=== PATIENT | male | born 1960 | race Caucasian/White ===

== ENCOUNTER → 2021-08-21 07:46 | Outpatient (BNVA) | payer MEDICARE, SELFPAY | PROVIDERS: Visit Provider Nurse Practitioner Family | DX: G25.81 Restless legs syndrome (principal); G62.9 Polyneuropathy, unspecified; R29.898 Other symptoms and signs involving the musculoskeletal system | CPT/HCPCS: 99212 ==

== ENCOUNTER → 2021-11-18 10:48 | Outpatient (BNVA) | payer MEDICARE, SELFPAY | PROVIDERS: PCP Internal Medicine; Visit Provider Nurse Practitioner Family | DX: G25.81 Restless legs syndrome (principal); G62.9 Polyneuropathy, unspecified | CPT/HCPCS: 99212 ==

== ENCOUNTER 2023-12-02 13:55 | Outpatient (AMB) | payer MEDICARE, MEDICAID, SELFPAY ==
--- NOTE | 2023-12-02 13:57 | A.OFFVIS_ITS ---
Vital Signs 12/02/23 14:06 Height 6 ft Weight 187 lb BMI 25.4 BP 122/76 Blood Pressure Location Rt brachial Position Sitting Pulse 59 Pulse Source Pulse Oximeter Pulse Oximetry (%) 98 Oxygen Delivery Method Room Air Intake Visit Reasons: Follow up-CONF Intake Note: Patient presents for follow up. Patient haven't seen provider in a while deals with the neuropathy every day Allergies No Known Allergies Allergy (Verified 12/02/23 14:07) Medication List - Last Reconciled 12/02/23 by HERNAN Gomez acetaminophen (Tylenol Extra Strength) 500 mg PO Q6H PRN amlodipine 2.5 mg PO DAILY aspirin 81 mg PO DAILY atorvastatin 40 mg PO DAILY baclofen 10 mg PO DAILY bumetanide 1 mg PO DAILY cholecalciferol (vitamin D3) 25 mcg PO DAILY clonidine 1 patch transdermal QWEEK clopidogrel 75 mg PO DAILY cyanocobalamin (vitamin B-12) 1,000 mcg PO DAILY gabapentin enacarbil ER (Horizant ER) 300 mg PO BID 30 days losartan 25 mg PO DAILY oxybutynin chloride ER 5 mg PO DAILY ropinirole 0.5 mg (2 x 0.25 mg) PO .4 times a day 90 days tramadol 50 mg PO Q6H PRN 7 days HPI Comments Details: 63-yr-old male presents for f/u visit. Pt was last seen approx 2 yrs ago. Pt denies any significant interval medical changes. Pt is still followed closely by Dr Benavides for CKD- last GRF 26%. He has had an intentional weight loss. He continues to have BLE squeezing sensation and numbness, but also hypersensitive to touch. May feel like he is walking through puddles. Notes that if he eats certain foods, such as a certain type of pasta- certain brands and certain sauces, will trigger a flare-up. He describes the flare-ups- poking/needling sensation and prolonged BLE burning sensation a/w restlessness, which can last 5 hours. Tries to massage his legs. Walking can help- especially on colder floors. He avoids most dark colored fruits per nephrology; nuts/seeds/seeded fruits d/t diverticulitis. He states his blood sugars have been a little high. The Horizant 300mg bid and Ropinirole 0.5mg qid- does help, when he recently missed a day d/t delivery issue, he had increased foot pain. Generally tolerates these well. May doze off if inactive. No OCD or OH s/s. Previous trials- Gabapentin caused drop attacks. [facility] Medical History (Updated 12/02/23 @ 14:36 by HERNAN Gomez) Kidney failure Surgical History History of hernia surgery History of surgery on arm Family History Father Diabetes Mother Cancer Sister No problems noted. Social History Alcohol intake: never Patient Tobacco Use Status: Never used Tobacco Physical Exam Vital Signs: Last Vital Signs Pulse 59 12/02/23 14:06 BP 122/76 12/02/23 14:06 Pulse Ox 98 12/02/23 14:06 Oxygen Delivery Method Room Air 12/02/23 14:06 BMI result Body Mass Index 25.4 Const General: cooperative and no acute distress Orientation/consciousness: patient oriented x3 Resp Effort & Inspection: normal respiratory effort and able to speak in complete sentences Neuro General: patient oriented x3 Cranial nerves: Yes CN's II-XII intact bilaterally Cognition (Neuro): normal cognition Psych Appearance: grossly normal Mental Status: mental status grossly normal Speech and movement: Normal speech and movement present Affect: normal affect Attitude: cooperative Assessment & Plan Assessment & Plan (1) Polyneuropathy: Comment: BLE- diffuse axonal > demylinative, sensory motor peripheral neuropathy- ? restless legs; ? related to CKD; ? idiopathic/familial. Code(s): G62.9 - Polyneuropathy, unspecified Category: Medical Plan Continue Horizant 300mg bid. Will initiate a prior auth- to see if this is now covered by pt's insurance. Continue Reqip 0.25mg 2 tabs QID. Check labs- to assess underlying etiologies of food intake which triggers foot pain. Previous trials- Gabapentin caused drop attacks. Follow-up in 6 months or sooner prn. Orders: Orders Complete Blood Count Auto Diff 12/02/23 G62.9 - Polyneuropathy, unspecified, N19 - Unspecified kidney failure, R73.9 - Hyperglycemia, unspecified Comprehensive Met. Panel 12/02/23 G62.9 - Polyneuropathy, unspecified, N19 - Unspecified kidney failure, R73.9 - Hyperglycemia, unspecified Vitamin B12 and Folate 12/02/23 G62.9 - Polyneuropathy, unspecified, N19 - Unspecified kidney failure, R73.9 - Hyperglycemia, unspecified Folate 12/02/23 G62.9 - Polyneuropathy, unspecified, N19 - Unspecified kidney failure, R73.9 - Hyperglycemia, unspecified Hemoglobin A1c 12/02/23 G62.9 - Polyneuropathy, unspecified, N19 - Unspecified kidney failure, R73.9 - Hyperglycemia, unspecified TSH reflex Free T4 12/02/23 G62.9 - Polyneuropathy, unspecified, N19 - Unspecified kidney failure, R73.9 - Hyperglycemia, unspecified Medications: Refilled gabapentin enacarbil ER (Horizant ER) 300 mg PO BID 60 tabs 6RF 30 days Coding Level of Care Code Est Pt Level 4 (48116) Diagnoses Polyneuropathy G62.9
[2023-12-02 14:06] VITALS: BP 122/76; PULSE 59; O2SAT 98; BMI 25.4
== END 2023-12-02 15:02 | disposition home or self-care (01) ==
PROVIDERS: PCP Internal Medicine; Visit Provider Nurse Practitioner Family
DX: G62.9 Polyneuropathy, unspecified (principal)
CPT/HCPCS: 99214

== ENCOUNTER → 2023-12-02 13:55 | Outpatient (BNVA) | payer MEDICARE, MEDICAID, SELFPAY | PROVIDERS: PCP Internal Medicine; Visit Provider Nurse Practitioner Family | DX: G62.9 Polyneuropathy, unspecified (principal); Z79.899 Other long term (current) drug therapy | CPT/HCPCS: 99212 ==

== ENCOUNTER 2024-06-19 13:43 | Outpatient (AMB) | payer MEDICARE, MEDICAID, SELFPAY ==
--- NOTE | 2024-06-19 14:00 | MHC.OFFVIS ---
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 Accompanied by: Self / Same As Patient Allergies No Known Allergies Allergy (Verified 06/19/24 14:02) Medication List - Last Reconciled 06/19/24 by HERNAN Gomez acetaminophen (Tylenol Extra Strength) 500 mg PO Q6H PRN amlodipine 2.5 mg PO DAILY aspirin 81 mg PO DAILY atorvastatin 40 mg PO DAILY baclofen 10 mg PO DAILY bumetanide 1 mg PO DAILY cholecalciferol (vitamin D3) 25 mcg PO DAILY clonidine 1 patch transdermal QWEEK clopidogrel 75 mg PO DAILY cyanocobalamin (vitamin B-12) 1,000 mcg PO DAILY gabapentin enacarbil ER (Horizant ER) 300 mg PO BID 30 days losartan 25 mg PO DAILY oxybutynin chloride ER 5 mg PO DAILY pregabalin 25 mg PO TID 30 days ropinirole 0.5 mg (2 x 0.25 mg) PO .4 times a day 90 days tramadol 50 mg PO Q6H PRN 7 days HPI Comments Details: 64-yr-old male presents for f/u visit of BLE polyneuropathy and RLS. Pt denies any significant interval medical changes. December 2023- HgA1C 6.5%- denies known h/o diabetes, however has a strong family h/o DM.. Pt is still followed closely by Dr Benavides for CKD- last GRF 28%. He also reports he had vascular f/u for BLE KATHERIN and AAA US- 3.2cm, gisel iliac stent monitoring- evaluations were stable/reassuring. He does not smoke- quit 6 yrs ago. Since the last visit, pt was switched from Horizant to Pregabalin 25mg tid. He feels the Pregabalin is more effective for neuralgic pain control than the Horizant. He did notice some increased BLE/foot swelling after starting pregabalin, which has subsided. He is still avoiding certain foods that do seem to trigger his neuropathic pain- such as pasta jar. He does still have some intermittent foot numbness- occassionally may feel like he is stepping in waterbut has not or like he has stepped on something but has not. Can easily doze off if relaxing and laying down. Denies drop attacks or orthostatic lightheadedness. Compliant Ropinirole 0.5mg qid- does help restlessness. Generally tolerates these well. May doze off if inactive. No OCD or OH s/s. Previous trials- Gabapentin caused drop attacks. [facility] Medical History (Updated 06/19/24 @ 21:12 by HERNAN Gomez) Kidney failure Surgical History History of hernia surgery History of surgery on arm Family History Father Diabetes Mother Cancer Sister No problems noted. Social History Alcohol intake: never Patient Tobacco Use Status: Never used Tobacco Physical Exam Vital Signs: Last Vital Signs BP 130/80 06/19/24 14:02 BMI result Body Mass Index 25.6 Const General: cooperative and no acute distress Orientation/consciousness: patient oriented x3 Resp Effort & Inspection: normal respiratory effort and able to speak in complete sentences Neuro General: patient oriented x3 Cranial nerves: Yes CN's II-XII intact bilaterally Cognition (Neuro): normal cognition Psych Appearance: grossly normal Mental Status: mental status grossly normal Speech and movement: Normal speech and movement present Affect: normal affect Attitude: cooperative Assessment & Plan Assessment & Plan (1) Polyneuropathy: Comment: BLE- diffuse axonal > demyelinative, sensory motor peripheral neuropathy- likely secondary to CKD, less likely idiopathic/familial. Code(s): G62.9 - Polyneuropathy, unspecified Category: Medical (2) Restless leg syndrome: Code(s): G25.81 - Restless legs syndrome Category: Medical (3) Elevated hemoglobin A1c: Code(s): R73.09 - Other abnormal glucose Category: Medical Plan Horizant stopped d/t insurance coverage issue. Continue Pregabalin 25mg po tid- as it is more effective and well-tolerated. Monitor for peripheral swelling. Continue Ropinirole 0.25mg tab- 2 tabs QID. Reviewed previous HgA1C 6.5%, will recheck fasting CBC, CMP, HgA1C- lab slips given to pt. Previous trials- Gabapentin caused drop attacks. Horizant- not fully effective. Follow-up in 6 months or sooner prn. Orders: Orders Complete Blood Count Auto Diff Today N19 - Unspecified kidney failure, R73.09 - Other abnormal glucose Comprehensive Met. Panel Today N19 - Unspecified kidney failure, R73.09 - Other abnormal glucose Hemoglobin A1c Today N19 - Unspecified kidney failure, R73.09 - Other abnormal glucose Coding Level of Care Code Est Pt Level 4 (04807) Diagnoses Polyneuropathy G62.9 Restless leg syndrome G25.81 Elevated hemoglobin A1c R73.09
[2024-06-19 14:02] VITALS: BP 130/80; BMI 25.6
== END 2024-06-19 14:52 | disposition home or self-care (01) ==
PROVIDERS: PCP Internal Medicine; Visit Provider Nurse Practitioner Family
DX: G62.9 Polyneuropathy, unspecified (principal); G25.81 Restless legs syndrome; R73.09 Other abnormal glucose
CPT/HCPCS: 99214

== ENCOUNTER → 2024-06-19 13:43 | Outpatient (BNVA) | payer MEDICARE, MEDICAID, SELFPAY | PROVIDERS: PCP Internal Medicine; Visit Provider Nurse Practitioner Family | DX: G62.9 Polyneuropathy, unspecified (principal); G25.81 Restless legs syndrome; R73.09 Other abnormal glucose | CPT/HCPCS: 99212 ==

== ENCOUNTER 2024-12-21 10:13 | Outpatient (AMB) | payer MEDICARE, MEDICAID, SELFPAY ==
[2024-12-21 10:33] VITALS: BP 144/68; PULSE 62; O2SAT 97; BMI 24.0
--- NOTE | 2024-12-21 10:33 | A.OFFVIS_ITS ---
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 Accompanied by: Self / Same As Patient Allergies No Known Allergies Allergy (Verified 12/21/24 10:37) Medication List - Last Reconciled 12/21/24 by HERNAN Gomez acetaminophen (Tylenol Extra Strength) 500 mg PO Q6H PRN amlodipine 2.5 mg PO DAILY aspirin 81 mg PO DAILY atorvastatin 40 mg PO DAILY baclofen 10 mg PO DAILY bumetanide 1 mg PO DAILY cholecalciferol (vitamin D3) 25 mcg PO DAILY clonidine 1 patch transdermal QWEEK clopidogrel 75 mg PO DAILY cyanocobalamin (vitamin B-12) 1,000 mcg PO DAILY gabapentin enacarbil ER (Horizant ER) 300 mg PO BID 30 days losartan 25 mg PO DAILY oxybutynin chloride ER 5 mg PO DAILY pregabalin 25 mg PO TID 30 days ropinirole 0.5 mg (2 x 0.25 mg) PO QID 90 days tramadol 50 mg PO Q6H PRN 7 days HPI Comments Details: 64-yr-old male presents for f/u visit of BLE polyneuropathy and RLS. Pt denies any significant interval medical changes. He is planning to move to [place] either in February, and if he is not able to move by February then we will move next summer. He is curious if we know of a neurologist in [place]- unfortunately I do not. Interval 06/29/24 labs, were notable for elevated WBC 11.3, RBC 6.04, H&H 19.1/56.4, BUN 52, creatinine 2.54, eGFR 27 low, hemoglobin A1c 6.8%. He did have a UTI at the time, and was being treated with an antibiotic. At that time, we did share his lab work with his PCP and epoxy fabrication supervisor. Patient states he did speak to his epoxy fabrication supervisor, and was advised to see hematology- though he has not, as he has not had follow-up with his PCP office. He has continued to follow-up with Dr. Brannon, vascular. He states he is still smoking, but is trying not to. Pt reports his BLE now feel more like a squeezing sensation, and not so much a burning or restlessness. He does still have some intermittent foot numbness- occasionally may feel like he is stepping in water, but has not or like he has stepped on something but has not. He is still avoiding certain foods that do seem to trigger his neuropathic pain- such as pasta jar. Can easily doze off if relaxing and laying down. Denies drop attacks or orthostatic lightheadedness. Compliant w/ Pregabalin 25mg tid and Ropinirole 0.5mg qid- does seem to help. Generally tolerates these well. May doze off if inactive. No OCD or OH s/s. Previous trials- Gabapentin caused drop attacks. [facility] Medical History (Updated 12/21/24 @ 11:29 by HERNAN Gomez) Kidney failure Surgical History History of hernia surgery History of surgery on arm Family History Father Diabetes Mother Cancer Sister No problems noted. Social History Alcohol intake: never Patient Tobacco Use Status: Never used Tobacco Physical Exam Vital Signs: Last Vital Signs Pulse 62 12/21/24 10:33 BP 144/68 H 12/21/24 10:33 Pulse Ox 97 12/21/24 10:33 Oxygen Delivery Method Room Air 12/21/24 10:33 BMI result Body Mass Index 24.0 Const General: cooperative and no acute distress Orientation/consciousness: patient oriented x3 Resp Effort & Inspection: normal respiratory effort and able to speak in complete sentences Neuro General: patient oriented x3 Cranial nerves: Yes CN's II-XII intact bilaterally Cognition (Neuro): normal cognition Psych Appearance: grossly normal Mental Status: mental status grossly normal Speech and movement: Normal speech and movement present Affect: normal affect Attitude: cooperative Results Reviewed Results Reviewed: Assessment & Plan Assessment & Plan (1) Kidney failure: Code(s): N19 - Unspecified kidney failure Category: Medical (2) Elevated hemoglobin: Code(s): D58.2 - Other hemoglobinopathies Category: Medical (3) Polyneuropathy: Comment: BLE- diffuse axonal > demyelinative, sensory motor peripheral neuropathy- likely secondary to CKD, less likely idiopathic/familial. Code(s): G62.9 - Polyneuropathy, unspecified Category: Medical (4) Restless leg syndrome: Code(s): G25.81 - Restless legs syndrome Category: Medical (5) Elevated hemoglobin A1c: Code(s): R73.09 - Other abnormal glucose Category: Medical Plan Reviewed interval labs, notable for elevated hemoglobin and hematocrit, chronic kidney disease, an elevated hemoglobin A1c. We will recheck labs including iron studies. Patient advised that if hemoglobin A1c remains elevated he should follow-up with PCP office to initiate treatment to improve glycemic control. We will request hematology consult for elevated hemoglobin and hematocrit. Continue Pregabalin 25mg po tid- as it is more effective and well-tolerated. Monitor for peripheral swelling. Continue Ropinirole 0.25mg tab- 2 tabs QID. Previous trials- Gabapentin caused drop attacks. Horizant- not fully effective. Reassured patient, if he does mood [place], we will work with his new medical team to ensure continuity of care. Follow-up in 6 months or sooner prn. Orders: Orders 2 Ferritin Today D58.2 - Other hemoglobinopathies, N19 - Unspecified kidney failure, R73.09 - Other abnormal glucose IRON PROFILE Today D58.2 - Other hemoglobinopathies, D64.9 - Anemia, unspecified, N19 - Unspecified kidney failure, R73.09 - Other abnormal glucose Hemoglobin A1c Today D58.2 - Other hemoglobinopathies, N19 - Unspecified kidney failure, R73.09 - Other abnormal glucose Comprehensive Met. Panel Today D58.2 - Other hemoglobinopathies, N19 - Unspecified kidney failure, R73.09 - Other abnormal glucose Complete Blood Count Auto Diff Today D58.2 - Other hemoglobinopathies, N19 - Unspecified kidney failure, R73.09 - Other abnormal glucose Referrals 2 Hematology & Oncology Referral D58.2 - Other hemoglobinopathies, N19 - Unspecified kidney failure Medications: Refilled 2 pregabalin 25 mg PO TID 30 days 90 caps 3RF ropinirole 2 TABS AT 11 AM, 2 TABS AT 4 PM, 2 TABS AT 7 PM, AND 2 TABS AT 11 PM 0.5 mg (2 x 0.25 mg) PO QID 90 days 720 tabs 1RF Discontinued 2 gabapentin enacarbil ER (Horizant ER) Discontinued Reason: Doctor's Order 300 mg PO BID 30 days 60 tabs 6RF Coding Level of Care Code Est Pt Level 4 (66917) Diagnoses Kidney failure N19 Elevated hemoglobin D58.2 Polyneuropathy G62.9 Restless leg syndrome G25.81 Elevated hemoglobin A1c R73.09
--- OUTSIDE RECORDS SUMMARY | 2024-12-21 10:52 | XMS_ITS | Encounter Summary ---
Author Organization [facility] Address [address] [facility] [address] [place] [address] Phone Care Team Providers Care Yacht Master Name Role Phone Bola Mendoza MD Primary Care Provider [phone] Encounter Details Date Type Department Care Team (Late st Contact Info) Description 12/22/2020 Orders Only [facility] [address] [place] [address] Zeus Benavides MD [address] [address] Stage 3a chronic kidney disease (HCC) Social History Tobacco Use Types Packs/Day Years Used Date Smoking Tobacco: Former Cigarettes Q uit: 07/25/2015 Smokeless Tobacco: Never Comments:Smoking History Inf o:Every day Alcohol Use Standard Drinks/Week Comments Not Currently 0 (1 standard drink = 0.6 oz pur e alcohol) Sex and Gender Information Value Date Recorded Sex Assigned at Not on file Legal Sex Male 5:06 PM EST Gender Identity Not on file Sexual Orientation Not on file documented as of this encounter Plan of Treatment Upcoming Encounters Date Type Department Care Team (Late st Contact Info) Description 01/03/2025 2:45 PM EDT Office Visit [facility] [address] [place] [id number] Zeus Benavides MD [address] [facility] [address] [place] [address] documented as of this encounter Procedures Procedure Name Priority Date/Time Associated Diagnosis Comments PROTEIN / CREATININE RATIO, URINE Routine 04/13/2021 1:32 PM EDT Stage 3a chronic kidney disease (HCC) VITAMIN D 25 HYDROXY Routine 04/13/2021 1:32 PM EDT Stage 3a chronic kidney disease (HCC) PTH, INTACT Routine 04/13/2021 1:32 PM EDT Stage 3a chronic kidney disease (HCC) RENAL FUNCTION PANEL Routine 04/13/2021 1:32 PM EDT Stage 3a chronic kidney disease (HCC) documented in this encounter Results * (ABNORMAL) Renal Function Panel (04/13/2021 1:32 PM EDT) Glucose 126(H) (70-99) MG/DL [facility] BUN 43(H) (8-23) MG/DL [facility] Creatinine 2.5(H) (0.7-1.2) MG/DL [facility] Sodium 141 (133-145) MMOL/L [facility] Potassium 5.3(H) (3.6-5.2) MMOL/L [facility] Chloride 103 (98-107) MMOL/L [facility] Bicarbonate (CO2) 27 (22-29) MMOL/L [facility] Anion Gap 11 (4-17) [facility] Albumin 4.3 (3.4-4.8) GM/DL [facility] Calcium 9.5 (8.6-10.5) MG/DL [facility] Phosphorus, Serum 3.2 (2.5-4.5) MG/DL [facility] Est GFR Non 27 ML/MIN/1.7 3 M2 [facility] Comment: Creatinine based estimated glomerular filtration rate (eGFR) is calculated using the Chronic Kidney Disease Epidemiology Collaboration (CKD-EPI). The CKD-EPI creatinine equation has not been validated in children (<18 years), women or in some racial or ethnic subgroups other than Caucasians and Americans. EST GFR 32 ML/MIN/1.7 3 M2 [facility] Comment: Creatinine based estimated glomerular filtration rate (eGFR) is calculated using the Chronic Kidney Disease Epidemiology Collaboration (CKD-EPI). The CKD-EPI creatinine equation has not been validated in children (<18 years), women or in some racial or ethnic subgroups other than Caucasians and Americans. Testing performed or reported by [facility], a Service of [address] [address] Anitra Ball MD, Organizational Effectiveness Consultant WILFRIDIA# [id number] Blood specimen (specimen) Venous blood / Unknown 04/13/2021 1:32 PM EDT 04/13/2021 1:36 PM EDT Zeus Benavides MD LAB BLOOD ORDERABLES Final Resu lt Performing Organization Address [facility] Co de Phone Number [facility] * (ABNORMAL) PTH, intact (04/13/2021 1:32 PM EDT) PTH, Intact 80(H) (15-65) PG/ML [facility] Comment: Testing performed or reported by [facility], a Service of [address] [address] Anitra Ball MD, Organizational Effectiveness Consultant CLIA# [id number] Blood specimen (specimen) Venous blood / Unknown 04/13/2021 1:32 PM EDT 04/13/2021 1:36 PM EDT us Zeus Benavides MD LAB BLOOD ORDERABLES Final Resu lt Performing Organization Address [facility] Co de Phone Number [facility] * (ABNORMAL) Vitamin D 25 hydroxy (04/13/2021 1:32 PM EDT) Vitamin D, 25-Hydroxy 51.4(H) (20-50) NG/ML [facility] Comment: Testing performed or reported by [facility], a Service of [address] [address] Anitra Ball MD, Organizational Effectiveness Consultant CLIA# [id number] Blood specimen (specimen) Venous blood / Unknown 04/13/2021 1:32 PM EDT 04/13/2021 1:36 PM EDT Zeus Benavides MD LAB BLOOD ORDERABLES Final Resu lt Performing Organization Address [facility] Co de Phone Number [facility] * (ABNORMAL) Urine Protein / creatinine ratio (04/13/2021 1:32 PM EDT) Protein/Creati ne Ratio 0.58(H) (0-0.2) [facility] Protein, Urine 69 MG/DL [facility] Creatinine, Urine 118.5 MG/DL [facility] Comment: Testing performed or reported by [facility], a Service of [facility], [address] [place] [address] Anitra Ball MD, Organizational Effectiveness Consultant [facility]# [id number] Urine specimen (specimen) Urine specimen obtained by clean catch procedure / Unknown 04/13/2021 1:32 PM EDT 04/13/2021 1:36 PM EDT Zeus Benavides MD LAB URINE ORDERABLES Final Resu lt Performing Organization Address [facility] Co de Phone Number [facility] documented in this encounter Visit Diagnoses Diagnosis Stage 3a chronic kidney disease (HCC) documented in this encounter Care Teams Yacht Master Relationship Specialty Start Date End Date Bola Mendoza MD [facility] [address] [place] [address] [address] [place] [address] PCP - General Internal Medicine 09/12/20 documented as of this encounter
== END 2024-12-21 12:01 | disposition home or self-care (01) ==
LOC: HO.HSMS 10:14
PROVIDERS: PCP Internal Medicine; Visit Provider Nurse Practitioner Family
DX: N19 Unspecified kidney failure (principal); D58.2 Other hemoglobinopathies; G62.9 Polyneuropathy, unspecified; G25.81 Restless legs syndrome; R73.09 Other abnormal glucose
CPT/HCPCS: 99214

== ENCOUNTER → 2024-12-21 10:13 | Outpatient (BNVA) | payer MEDICARE, MEDICAID, SELFPAY | PROVIDERS: PCP Internal Medicine; Visit Provider Nurse Practitioner Family | DX: G62.9 Polyneuropathy, unspecified (principal); N19 Unspecified kidney failure; R73.09 Other abnormal glucose; D58.2 Other hemoglobinopathies; G25.81 Restless legs syndrome | CPT/HCPCS: 99212 ==

== ENCOUNTER 2025-06-17 13:51 | Outpatient (AMB) | payer MEDICARE, SELFPAY ==
--- NOTE | 2025-06-17 14:06 | MHC.OFFVIS ---
Vital Signs 06/17/25 14:09 Height 6 ft Weight 188 lb BMI 25.5 BP 142/80 H Blood Pressure Location Rt brachial Position Sitting Pulse 58 Pulse Source Pulse Oximeter Pulse Oximetry (%) 98 Oxygen Delivery Method Room Air Intake Visit Reasons: 6m follow up Intake Note: Patient presents 6 month follow up for Polyneuropathy/RLS [employer]iter Required: No Accompanied by: Self / Same As Patient Allergies No Known Allergies Allergy (Verified 06/17/25 14:12) Medication List - Last Reconciled 06/17/25 by HERNAN Gomez acetaminophen (Tylenol Extra Strength) 500 mg PO Q6H PRN amlodipine 2.5 mg PO DAILY apixaban (Eliquis) 5 mg PO BID aspirin 81 mg PO DAILY atorvastatin 40 mg PO DAILY baclofen 10 mg PO DAILY bumetanide 1 mg PO DAILY cholecalciferol (vitamin D3) 25 mcg PO DAILY clonidine 1 patch transdermal QWEEK cyanocobalamin (vitamin B-12) 1,000 mcg PO DAILY losartan 25 mg PO DAILY oxybutynin chloride ER 5 mg PO DAILY pregabalin 25 mg PO TID 30 days ropinirole 0.5 mg (2 x 0.25 mg) PO QID 90 days tramadol 50 mg PO Q6H PRN 7 days HPI Comments Details: 65-yr-old male presents for f/u visit of BLE polyneuropathy and RLS. 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 He was admitted to [facility] and underwent embolectomy/thrombectomy by Dr Brannon. Clopidegrol was switched to life-long Eliquis tx. Follow-up vascualr work-up has been reassuirng. He states he has recovered well from the embolectomy and thrombectomy. He will f/u w/ Dr Brannon next year. He is still followed closely by Dr Benavides. Unfortunately, due to the above, he had to reschedule the previously requested hematology consult, and has not had the follow-up hemoglobin A1c and iron studies lab work done. He is working to reestablish care with his PCP office. He has put his plans on hold to move to [place] due to these new health issues and his dtr is planning to start a family. Pt reports his BLE now feel more like a squeezing sensation, and not so much a burning or restlessness. He does still have some intermittent foot numbness when walking (but hypersensitivity with light touch)- occasionally may feel like he is stepping in water, but has not or like he has stepped on something but has not. He is still avoiding certain foods that do seem to trigger his neuropathic pain- such as pasta jar. Can easily doze off if relaxing and laying down. Denies drop attacks or orthostatic lightheadedness. Compliant w/ Pregabalin 25mg tid and Ropinirole 0.5mg qid- does seem to help. Generally tolerates these well. May doze off if inactive. No OCD or OH s/s. Previous trials- Gabapentin caused drop attacks. [facility] Medical History (Updated 06/17/25 @ 15:26 by HERNAN Gomez) Deep vein blood clot of right lower extremity Kidney failure Surgical History History of hernia surgery History of surgery on arm Family History Father Diabetes Mother Cancer Sister No problems noted. Social History Alcohol intake: never Patient Tobacco Use Status: Never used Tobacco Physical Exam Vital Signs: Last Vital Signs Pulse 58 06/17/25 14:09 BP 142/80 H 06/17/25 14:09 Pulse Ox 98 06/17/25 14:09 Oxygen Delivery Method Room Air 06/17/25 14:09 BMI result Body Mass Index 25.5 Const General: cooperative and no acute distress Orientation/consciousness: patient oriented x3 Resp Effort & Inspection: normal respiratory effort and able to speak in complete sentences Neuro General: patient oriented x3 Cranial nerves: Yes CN's II-XII intact bilaterally Cognition (Neuro): normal cognition Psych Appearance: grossly normal Mental Status: mental status grossly normal Speech and movement: Normal speech and movement present Affect: normal affect Attitude: cooperative Results Reviewed Results Reviewed: Assessment & Plan Assessment & Plan (1) Polyneuropathy: Comment: BLE- diffuse axonal > demyelinative, sensory motor peripheral neuropathy- likely secondary to CKD, less likely idiopathic/familial. Code(s): G62.9 - Polyneuropathy, unspecified Category: Medical (2) Restless leg syndrome: Code(s): G25.81 - Restless legs syndrome Category: Medical (3) Elevated hemoglobin A1c: Code(s): R73.09 - Other abnormal glucose Category: Medical Plan Reviewed interval hospital notes and labs. notable for elevated hemoglobin and hematocrit, chronic kidney disease, an elevated hemoglobin A1c. We will again recheck labs including iron studies and to recheck HgA1C Hematology consult for elevated hemoglobin and hematocrit, especially now that he has had a blood clot in the setting of clopidogrel use- as previously ordered- pt will call to reschedule. Continue Pregabalin 25mg po tid- as it is more effective and well-tolerated. Monitor for peripheral swelling. Continue Ropinirole 0.25mg tab- 2 tabs QID. Previous trials- Gabapentin caused drop attacks. Horizant- not fully effective. Follow-up in 6 months or sooner prn. Orders: Orders Comprehensive [place]. Panel Fast Today D64.9 - Anemia, unspecified, G62.9 - Polyneuropathy, unspecified, N19 - Unspecified kidney failure, R73.09 - Other abnormal glucose Hemoglobin A1c Today D64.9 - Anemia, unspecified, G62.9 - Polyneuropathy, unspecified, N19 - Unspecified kidney failure, R73.09 - Other abnormal glucose Methylmalonic Acid Today D64.9 - Anemia, unspecified, G62.9 - Polyneuropathy, unspecified, N19 - Unspecified kidney failure, R73.09 - Other abnormal glucose Vitamin D 25-OH (D2 and D3) Today D64.9 - Anemia, unspecified, E55.9 - Vitamin D deficiency, unspecified, G62.9 - Polyneuropathy, unspecified, N19 - Unspecified kidney failure, R73.09 - Other abnormal glucose Phosphorus Today D64.9 - Anemia, unspecified, G62.9 - Polyneuropathy, unspecified, N19 - Unspecified kidney failure, R73.09 - Other abnormal glucose Vitamin B6 Today D64.9 - Anemia, unspecified, G62.9 - Polyneuropathy, unspecified, N19 - Unspecified kidney failure, R73.09 - Other abnormal glucose Erythrocyte Sedimentation Rate Today D64.9 - Anemia, unspecified, G62.9 - Polyneuropathy, unspecified, N19 - Unspecified kidney failure, R73.09 - Other abnormal glucose C Reactive Protein Today D64.9 - Anemia, unspecified, G62.9 - Polyneuropathy, unspecified, N19 - Unspecified kidney failure, R73.09 - Other abnormal glucose Complete Blood Count Auto Diff Today D64.9 - Anemia, unspecified, G62.9 - Polyneuropathy, unspecified, N19 - Unspecified kidney failure, R73.09 - Other abnormal glucose Ferritin Today D64.9 - Anemia, unspecified, G62.9 - Polyneuropathy, unspecified, N19 - Unspecified kidney failure, R73.09 - Other abnormal glucose IRON PROFILE Today D64.9 - Anemia, unspecified, G62.9 - Polyneuropathy, unspecified, N19 - Unspecified kidney failure, R73.09 - Other abnormal glucose Magnesium Today D64.9 - Anemia, unspecified, G62.9 - Polyneuropathy, unspecified, N19 - Unspecified kidney failure, R73.09 - Other abnormal glucose Homocysteine Today D64.9 - Anemia, unspecified, G62.9 - Polyneuropathy, unspecified, N19 - Unspecified kidney failure, R73.09 - Other abnormal glucose Vitamin B12 and Folate Today D64.9 - Anemia, unspecified, G62.9 - Polyneuropathy, unspecified, N19 - Unspecified kidney failure, R73.09 - Other abnormal glucose Vitamin B1 Today D64.9 - Anemia, unspecified, E51.9 - Thiamine deficiency, unspecified, G62.9 - Polyneuropathy, unspecified, N19 - Unspecified kidney failure, R73.09 - Other abnormal glucose ALICE Reflex Titer and Pattern Today D64.9 - Anemia, unspecified, G62.9 - Polyneuropathy, unspecified, N19 - Unspecified kidney failure, R73.09 - Other abnormal glucose Phospholipid Ab Panel Today I82.401 - Acute embolism and thrombosis of unspecified deep veins of right lower extremity Medications: Refilled ropinirole 2 TABS AT 11 AM, 2 TABS AT 4 PM, 2 TABS AT 7 PM, AND 2 TABS AT 11 PM 0.5 mg (2 x 0.25 mg) PO QID 720 tabs 1RF 90 days Coding Level of Care Code Est Pt Level 4 (75153) Diagnoses Polyneuropathy G62.9 Restless leg syndrome G25.81 Elevated hemoglobin A1c R73.09
[2025-06-17 14:09] VITALS: BP 142/80; PULSE 58; O2SAT 98; BMI 25.5
== END 2025-06-17 15:23 | disposition home or self-care (01) ==
LOC: HO.HSMS 13:51
PROVIDERS: PCP Internal Medicine; Visit Provider Nurse Practitioner Family
DX: G62.9 Polyneuropathy, unspecified (principal); G25.81 Restless legs syndrome; R73.09 Other abnormal glucose
CPT/HCPCS: 99214

== ENCOUNTER → 2025-06-17 13:51 | Outpatient (BNVA) | payer MEDICARE, SELFPAY | PROVIDERS: PCP Internal Medicine; Visit Provider Nurse Practitioner Family | DX: G62.9 Polyneuropathy, unspecified (principal); G25.81 Restless legs syndrome; R73.09 Other abnormal glucose; Z79.01 Long term (current) use of anticoagulants; Z79.82 Long term (current) use of aspirin | CPT/HCPCS: 99212 ==